=== PATIENT | male | born 1965 | race Caucasian/White ===

== ENCOUNTER → 2016-06-10 | Outpatient (CLI) | payer OTHER ==
[~2016-06-10] MED LIST: AMLO5TAB2 PO; APIX5TAB PO; ATEN50TA PO; LEVO25TA5 PO; LISI-552 PO; LISI10TA2 PO; LISI40TA PO; LORA0.5T PO; LORA10TA7 PO; METH5TAB5 PO; METO-272 PO; METO100T6 PO; PRAV20TA PO; RIVA20TA PO; [UNRECOGNIZED DRUG - REMARK]
== END ==
LOC: LAB 16:58
PROVIDERS: ATTEND Surgery
DX: E05.90 Thyrotoxicosis, unspecified without thyrotoxic crisis or storm (principal)
CPT/HCPCS: 36415; 84436; 84443; 84480

== ENCOUNTER 2016-06-14 15:19 | Emergency (ER) | payer OTHER ==
[~2016-06-14] VITALS: Ht 180.3 cm; Wt 90.7 kg
[~2016-06-14 15:19] MED LIST changes: -AMLO5TAB2 PO; -APIX5TAB PO; -LEVO25TA5 PO; -LISI10TA2 PO; -LORA0.5T PO; -METO100T6 PO; -PRAV20TA PO
[2016-06-14] MEDS ORDERED: APIX5TAB PO (15:52)
[2016-06-14] MEDS ORDERED: METO100T6 PO (15:52)
[2016-06-14] MEDS ORDERED: LISI10TA2 PO (15:52)
[2016-06-14] MEDS ORDERED: AMLO5TAB2 PO (15:52)
--- NOTE | 2016-06-14 15:59 | ED General ---
General Chief Complaint: General Problems/Pain Stated Complaint: UNABLE TO SLEEP/L SIDE NECK PAIN Nursing Triage Note: PT CO OF POOR SLEEPING FOR APPROX 2 WEEKS, HAS ALOT OF STRESS AT WORK, HAS HAD RECENT ABLATION OF THYROID, HAS CRAMPING IN ARMS AND LEGS, SOME NECK PAIN FOR A COUPLE OF WEEKS DENIES INJURIES AT THIS X Nursing Sepsis Screen: No Definite Risk History of Present Illness Time Seen by Provider: 15:57 Initial Comments To ER with insomnia for about 3 weeks. States he's had a lot of stress at work and home and he lays awake at night thinking about this.. In October of last year he had chemical ablation of the thyroid with methimazole. He reports free T4 is decreasing and TSH is increasing. These labs were drawn 3 days ago. Reports cramping in his legs intermittently and cramping in his neck intermittently. Has not seen his physician for this. Timing/Duration: Intermittent Severity: Moderate Associated Systoms: Denies Symptoms Allergies and Home Medications Allergies Coded Allergies: No Known Drug Allergies (Unverified , 10/16/15) Home Medications Amlodipine Besylate 5 Mg Tablet #90 (Reported) Apixaban 5 Mg Tablet #60 (Reported) Lisinopril 10 Mg Tablet #90 (Reported) Lorazepam 0.5 Mg Tablet #10 0.5-1 MG PO HS PRN PRN INSOMNIA Prescribed by: SHANNAN ALEGRIA on 06/14/16 1634 Metoprolol Succinate 100 Mg Tab.er.24h #90 (Reported) Constitutional: see HPI EENTM: see HPI Respiratory: no symptoms reported Cardiovascular: no symptoms reported Genitourinary: no symptoms reported Musculoskeletal: no symptoms reported Skin: no symptoms reported Psychiatric/Neurological: No Symptoms Reported Hematologic/Lymphatic: No Symptoms Reported Immunological/Allergic: no symptoms reported Past Acheqch-Dntpet-Zyksmd Hx Patient Social History Alcohol Use: Denies Use Recreational Drug Use: No Smoking Status: Current Everyday Smoker Type Used: Cigarettes Recent Foreign Travel: No Contact w/Someone Who Travel: No Recent Infectious Disease Expo: No Immunizations Up To Date Tetanus Booster (TDap): More than 5yrs Surgeries HX Surgeries: Yes Surgeries: Appendectomy Respiratory Hx Respiratory Disorders: No Cardiovascular Hx Cardiac Disorders: Yes Cardiac Disorders: Hypertension, Palpitations Neurological Hx Neurological Disorders: No Reproductive System Hx Reproductive Disorders: No Sexually Transmitted Disease: No HIV/AIDS: No Genitourinary Hx Genitourinary Disorders: No Gastrointestinal Hx Gastrointestinal Disorders: No Musculoskeletal Hx Musculoskeletal Disorders: No Endocrine Hx Endocrine Disorders: Yes Endocrine Disorders: Diabetes, Non-Insulin dep HEENT HX ENT Disorders: No Loss of Vision: Denies Hearing Impairment: Denies Cancer Hx Cancer: No Psychosocial Hx Psychiatric Problems: Yes Behavioral Health Disorders: Anxiety Integumentary HX Skin/Integumentary Disorder: No Blood Transfusions Hx Blood Disorders: No Adverse Reaction to a Blood Tr: No Family Medical History Significant Family History: No Pertinent Family Hx Physical Exam Vital Signs Vital Sign - Last 12Hours 06/14/16 15:44 Temp 97.9 Pulse 79 Resp 18 B/P 146/95 Pulse Ox 96 Capillary Refill : Less Than 3 Seconds General Appearance: No Apparent Distress WD/WN Eyes: Bilateral Eye EOMI, Bilateral Eye Normal Inspection, Bilateral Eye PERRL HEENT: PERRL/EOMI TMs Normal Neck: Full Range of Motion Normal Inspection Respiratory: No Accessory Muscle Use No Respiratory Distress Cardiovascular: Regular Rate, Rhythm Normal Peripheral Pulses Gastrointestinal: Non Tender Soft Extremity: Normal Capillary Refill Normal Inspection Neurologic/Psychiatric: Alert Oriented x3 No Motor/Sensory Deficits Skin: Normal Color Warm/Dry Progress/Results/Core Measures Results/Orders Lab Results Laboratory Tests Test 06/14/16 15:40 Range/Units Alanine Aminotransferase (ALT/SGPT) 26 0-55 U/L Albumin 4.6 H 3.2-4.5 G/DL Alkaline Phosphatase 140 H 40-136 U/L Anion Gap 10 5-14 MMOL/L Aspartate Amino Transf (AST/SGOT) 36 H 5-34 U/L BUN/Creatinine Ratio 23 Basophils # (Auto) 0.0 0.0-0.1 10^3/uL Basophils (%) (Auto) 0 0-10 % Blood Urea Nitrogen 17 7-18 MG/DL Calcium Level 9.0 8.5-10.1 MG/DL Carbon Dioxide Level 20 L 21-32 MMOL/L Chloride Level 103 98-107 MMOL/L Creatinine 0.75 0.60-1.30 MG/DL Eosinophils # (Auto) 0.1 0.0-0.3 10^3/uL Eosinophils (%) (Auto) 1 0-10 % Estimat Glomerular Filtration Rate > 60 Free Thyroxine 0.51 L 0.70-1.48 NG/DL Glucose Level 97 70-105 MG/DL Hematocrit 50 40-54 % Hemoglobin 17.5 13.3-17.7 G/DL Lymphocytes # (Auto) 1.7 1.0-4.0 X 10^3 Lymphocytes (%) (Auto) 18 12-44 % Mean Corpuscular Hemoglobin 30 25-34 PG Mean Corpuscular Hemoglobin Concent 35 32-36 G/DL Mean Corpuscular Volume 86 80-99 FL Mean Platelet Volume 9.2 7.4-10.4 FL Monocytes # (Auto) 0.6 0.0-1.0 X 10^3 Monocytes (%) (Auto) 6 0-12 % Neutrophils # (Auto) 7.1 1.8-7.8 X 10^3 Neutrophils (%) (Auto) 74 42-75 % Platelet Count 287 130-400 10^3/uL Potassium Level 4.3 3.6-5.0 MMOL/L Red Blood Count 5.80 4.35-5.85 10^6/uL Red Cell Distribution Width 14.9 H 10.0-14.5 % Sodium Level 133 L 135-145 MMOL/L Thyroid Stimulating Hormone (TSH) 1.59 0.35-4.94 UIU/ML Total Bilirubin 0.7 0.1-1.0 MG/DL Total Protein 7.7 6.4-8.2 G/DL White Blood Count 9.5 4.3-11.0 10^3/uL My Orders Orders-SHANNAN ALEGRIA APRN Cbc With Automated Diff (06/14/16 15:24) Comprehensive Metabolic Panel (06/14/16 15:24) Thyroid Stimulating Hormone (06/14/16 15:24) Free T4 (Free Thyroxine) (06/14/16 15:24) Ondansetron Oral Dissolve Tab (Zofran (06/14/16 16:00) Vital Signs/I&O Vital Sign - Last 12Hours 06/14/16 15:44 Temp 97.9 Pulse 79 Resp 18 B/P 146/95 Pulse Ox 96 Blood Pressure Mean: 112 Departure Impression Impression: Primary Impression: Hyperthyroidism Additional Impressions: Muscle cramps Insomnia Qualified Code: G47.01 - Insomnia due to medical condition Disposition: 01 HOME, SELF-CARE Condition: Stable Departure-Patient Inst. Decision time for Depature: 16:32 Referrals: EVIE AVELAR DO (PCP) Primary Care Physician SASHA POWERS (Family) Primary Care Physician Patient Instructions: Insomnia Add. Discharge Instructions: 1. Follow-up with her regular doctor 2. Return to ER for any concerns All discharge instructions reviewed with patient and/or family. Voiced understanding. Scripts Lorazepam 0.5 Mg Tablet0.5-1 Mg PO HS PRN INSOMNIA #10 TAB Prov:SHANNAN ALEGRIA APRN 06/14/16 SHANNAN ALEGRIA APRN Jun 14, 2016 15:59
[2016-06-14] MEDS ORDERED: ONDANSETRON 4 MG (ZOFRAN) ORAL DISSOLVE TAB PO ONE (16:00)
[2016-06-14 16:09] LABS: BASOPHILS % (AUTO) 0 % (0-10); EOSINOPHILS # (AUTO) 0.1 10^3/uL (0.0-0.3); EOSINOPHILS % (AUTO) 1 % (0-10); LYMPHOCYTES # (AUTO) 1.7 X 10^3 (1.0-4.0); LYMPHOCYTES % (AUTO) 18 % (12-44); MEAN CORPUSCULAR HEMOGLOBIN 30 PG (25-34); MEAN CORPUSCULAR HGB CONC 35 G/DL (32-36); MEAN CORPUSCULAR VOLUME 86 FL (80-99); MEAN PLATELET VOLUME 9.2 FL (7.4-10.4); MONOCYTES # (AUTO) 0.6 X 10^3 (0.0-1.0); MONOCYTES % (AUTO) 6 % (0-12); NEUTROPHILS # (AUTO) 7.1 X 10^3 (1.8-7.8); NEUTROPHILS % (AUTO) 74 % (42-75); PLATELET COUNT 287 10^3/uL (130-400); RED CELL DISTRIBUTION WIDTH 14.9 % (10.0-14.5); WHITE BLOOD COUNT 9.5 10^3/uL (4.3-11.0)
[2016-06-14 16:24] LABS: ALANINE AMINOTRANSFERASE 26 U/L (0-55); ALBUMIN 4.6 G/DL (3.2-4.5); ANION GAP 10 MMOL/L (5-14); ASPARTATE AMINO TRANSFERASE 36 U/L (5-34); BILIRUBIN,TOTAL 0.7 MG/DL (0.1-1.0); BLOOD UREA NITROGEN 17 MG/DL (7-18); BUN/CREATININE RATIO 23; CARBON DIOXIDE 20 MMOL/L (21-32); CHLORIDE 103 MMOL/L (98-107); CREATININE SERUM 0.75 MG/DL (0.60-1.30); GFR ESTIMATED > 60; GLUCOSE 97 MG/DL (70-105); POTASSIUM 4.3 MMOL/L (3.6-5.0); SODIUM 133 MMOL/L (135-145); TOTAL PROTEIN 7.7 G/DL (6.4-8.2)
[2016-06-14] MEDS ORDERED: LORA0.5T PO (16:34)
[2016-06-14 16:45] LABS: THYROID STIMULATING HORMONE 1.59 UIU/ML (0.35-4.94)
[2016-06-14 17:09] VITALS: BP 136/88
== END 2016-06-14 17:09 | disposition home or self-care (01) ==
LOC: EDUNIT# 15:19 → ER 15:20
DX: G47.00 Insomnia, unspecified (principal); E05.90 Thyrotoxicosis, unspecified without thyrotoxic crisis or storm; R25.2 Cramp and spasm; E11.9 Type 2 diabetes mellitus without complications; F17.210 Nicotine dependence, cigarettes, uncomplicated; Z79.899 Other long term (current) drug therapy
CPT/HCPCS: 36415; 80053; 84439; 84443; 85025; 99281

== ENCOUNTER 2016-06-25 16:12 | Emergency (ER) | payer OTHER ==
[~2016-06-25] VITALS: Ht 180.3 cm; Wt 90.7 kg
[~2016-06-25 16:12] MED LIST changes: +AMLO5TAB2 PO; +APIX5TAB PO; +LISI10TA2 PO; +LORA0.5T PO; +METO100T6 PO
[2016-06-25] MEDS ORDERED: ASPIRIN 81 MG CHEW (CHILDREN'S ASA) PO ONE (16:30)
[2016-06-25 16:40] LABS: BASOPHILS # (AUTO) 0.1 10^3/uL (0.0-0.1); BASOPHILS % (AUTO) 1 % (0-10); EOSINOPHILS # (AUTO) 0.1 10^3/uL (0.0-0.3); EOSINOPHILS % (AUTO) 2 % (0-10); LYMPHOCYTES # (AUTO) 1.7 X 10^3 (1.0-4.0); LYMPHOCYTES % (AUTO) 27 % (12-44); MEAN CORPUSCULAR HEMOGLOBIN 31 PG (25-34); MEAN CORPUSCULAR HGB CONC 35 G/DL (32-36); MEAN CORPUSCULAR VOLUME 89 FL (80-99); MEAN PLATELET VOLUME 9.2 FL (7.4-10.4); MONOCYTES # (AUTO) 0.3 X 10^3 (0.0-1.0); MONOCYTES % (AUTO) 5 % (0-12); NEUTROPHILS # (AUTO) 4.2 X 10^3 (1.8-7.8); NEUTROPHILS % (AUTO) 65 % (42-75); PLATELET COUNT 248 10^3/uL (130-400); RED BLOOD COUNT 5.36 10^6/uL (4.35-5.85); RED CELL DISTRIBUTION WIDTH 15.6 % (10.0-14.5); WHITE BLOOD COUNT 6.4 10^3/uL (4.3-11.0)
[2016-06-25 16:55] LABS: PROTHROMBIN TIME PATIENT 13.2 SEC (12.2-14.7)
[2016-06-25 17:01] LABS: ALANINE AMINOTRANSFERASE 21 U/L (0-55); ALBUMIN 4.3 G/DL (3.2-4.5); ANION GAP 14 MMOL/L (5-14); ASPARTATE AMINO TRANSFERASE 30 U/L (5-34); BILIRUBIN,TOTAL 0.4 MG/DL (0.1-1.0); BLOOD UREA NITROGEN 15 MG/DL (7-18); BUN/CREATININE RATIO 16; CALCIUM 8.5 MG/DL (8.5-10.1); CARBON DIOXIDE 21 MMOL/L (21-32); CHLORIDE 104 MMOL/L (98-107); CREATININE SERUM 0.95 MG/DL (0.60-1.30); GFR ESTIMATED > 60; GLUCOSE 187 MG/DL (70-105); MAGNESIUM 2.4 MG/DL (1.8-2.4); POTASSIUM 3.7 MMOL/L (3.6-5.0); SODIUM 139 MMOL/L (135-145); TOTAL PROTEIN 7.3 G/DL (6.4-8.2)
--- NOTE | 2016-06-25 17:08 | Diagnostic Imaging Report ---
INDICATION: Lightheadedness and shortness of breath and chest pain. TECHNIQUE: PA chest obtained at 4:41 p.m. and compared to 10/16/2015. FINDINGS: Heart and mediastinal silhouette are unremarkable. There are chronic appearing increased interstitial markings. There is no acute consolidation or pneumothorax or pleural fluid. There is an old left clavicle fracture. IMPRESSION: Chronic appearing increased interstitial markings. No acute infiltrate or pleural fluid. Dictated by: Dictated on workstation # [id number]
[2016-06-25 17:23] LABS: MYOGLOBIN SERUM 87.2 NG/ML (10.0-92.0)
--- NOTE | 2016-06-25 17:27 | ED Cardiac General ---
History of Present Illness General Chief Complaint: Chest Pain Stated Complaint: CP,FACIAL NUMBNESS Nursing Triage Note: PT REPORTS INTERMITTENT CP X 2 WEEKS. PT REPORTS WORSE TODAY BUT DENIES ANY CURRENT CP. PT ALSO REPORTS 2 NEAR SYNCOPAL EPISODES YESTERAY AND TODAY. PT REPROTS GENERALIZED WEAKNESS. PT ALSO REPORTS L SIDED FACIAL NUMBNESS STARTING EARLY THIS AM. Source: patient Exam Limitations: no limitations History of Present Illness Time seen by provider: 16:23 Initial Comments This patient presents to the emergency room with complaints of intermittent episodes of near-syncope and dizziness 4 days. He had 2 such episodes today. They are not necessarily associated with activity. He also complains of frequent muscle cramping is in his neck and extremities. He has had some numbness to the left side of his face intermittently for many weeks. He has had some chest discomfort just left of the sternum 1-2 weeks. He has some mild chest discomfort at present. He had thyroid ablation last in October or November for hyperthyroidism. TSH and T4 have been relatively stable. He has not needed to start levothyroxine yet.. He continues on Eliquis and Toprol-XL for paroxysmal atrial fibrillation. Patient reports excellent compliance with his medications. He has had some shortness of breath today. He continues to smoke. His tobacco use has increased recently due to increased stress in his life. 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 He denies any alcohol or drug use. Patient reports his chest discomfort is minimally noticeable at this time. Allergies and Home Medications Allergies Coded Allergies: No Known Drug Allergies (Unverified , 10/16/15) Home Medications Amlodipine Besylate 5 Mg Tablet #90 (Reported) Apixaban 5 Mg Tablet #60 (Reported) Levothyroxine Sodium 25 Mcg Tablet #30 25 MCG PO DAILY Prescribed by: ERIK GHOTRA on 06/25/16 1842 Lisinopril 10 Mg Tablet #90 (Reported) Lorazepam 0.5 Mg Tablet #10 0.5-1 MG PO HS PRN PRN INSOMNIA Prescribed by: SHANNAN ALEGRIA on 06/14/16 1634 Metoprolol Succinate 100 Mg Tab.er.24h #90 (Reported) Review of Systems Constitutional: see HPI EENTM: No Symptoms Reported Respiratory: See HPI Cardiovascular: See HPI Gastrointestinal: No Symptoms Reported Genitourinary: No Symptoms Reported Musculoskeletal: no symptoms reported Skin: no symptoms reported Psychiatric/Neurological: See HPI Endocrine: See HPI Past Pzwdwzq-Ysxbmo-Ogupod Hx Patient Social History Alcohol Use: Denies Use Recreational Drug Use: No Smoking Status: Current Everyday Smoker Type Used: Cigarettes Recent Foreign Travel: No Contact w/Someone Who Travel: No Recent Infectious Disease Expo: No Recent Hopitalizations: No Immunizations Up To Date Tetanus Booster (TDap): More than 5yrs Surgeries HX Surgeries: Yes (THYROID ABLATION) Surgeries: Appendectomy Respiratory Hx Respiratory Disorders: No Cardiovascular Hx Cardiac Disorders: Yes Cardiac Disorders: Atrial Fibrillation (paroxysmal), Hypertension, Palpitations Neurological Hx Neurological Disorders: No Reproductive System Hx Reproductive Disorders: No Sexually Transmitted Disease: No HIV/AIDS: No Genitourinary Hx Genitourinary Disorders: No Gastrointestinal Hx Gastrointestinal Disorders: No Musculoskeletal Hx Musculoskeletal Disorders: No Endocrine Hx Endocrine Disorders: Yes Endocrine Disorders: Hyperthyroidism (status post nuclear thyroid ablation), Diabetes, Non-Insulin dep HEENT HX ENT Disorders: No Loss of Vision: Denies Hearing Impairment: Denies Cancer Hx Cancer: No Psychosocial Hx Psychiatric Problems: Yes Behavioral Health Disorders: Anxiety Integumentary HX Skin/Integumentary Disorder: No Blood Transfusions Hx Blood Disorders: No Adverse Reaction to a Blood Tr: No Family Medical History Significant Family History: No Pertinent Family Hx Physical Exam Vital Signs Capillary Refill : Less Than 3 Seconds General Appearance: No Apparent Distress WD/WN HEENT: PERRL/EOMI Normal ENT Inspection Pharynx Normal Neck: Normal Inspection Respiratory: Lungs Clear Normal Breath Sounds No Accessory Muscle Use No Respiratory Distress Cardiovascular: Regular Rate, Rhythm No Edema No Murmur Gastrointestinal: Normal Bowel Sounds Non Tender Soft Extremity: Normal Inspection No Pedal Edema Neurologic/Psychiatric: Alert Oriented x3 No Motor/Sensory Deficits Normal 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-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 Norm as Tested Skin: Normal Color Warm/Dry Progress/Results/Core Measures Results/Orders Lab Results Laboratory Tests Test 06/25/16 16:30 Range/Units Activated Partial Thromboplast Time 30 24-35 SEC Alanine Aminotransferase (ALT/SGPT) 21 0-55 U/L Albumin 4.3 3.2-4.5 G/DL Alkaline Phosphatase 114 40-136 U/L Anion Gap 14 5-14 MMOL/L Aspartate Amino Transf (AST/SGOT) 30 5-34 U/L B-Type Natriuretic Peptide < 10.0 <100.0 PG/ML BUN/Creatinine Ratio 16 Basophils # (Auto) 0.1 0.0-0.1 10^3/uL Basophils (%) (Auto) 1 0-10 % Blood Urea Nitrogen 15 7-18 MG/DL Calcium Level 8.5 8.5-10.1 MG/DL Carbon Dioxide Level 21 21-32 MMOL/L Chloride Level 104 98-107 MMOL/L Creatinine 0.95 0.60-1.30 MG/DL Eosinophils # (Auto) 0.1 0.0-0.3 10^3/uL Eosinophils (%) (Auto) 2 0-10 % Estimat Glomerular Filtration Rate > 60 Free Thyroxine 0.40 L 0.70-1.48 NG/DL Glucose Level 187 H 70-105 MG/DL Hematocrit 48 40-54 % Hemoglobin 16.4 13.3-17.7 G/DL INR Comment 1.0 0.8-1.4 Lymphocytes # (Auto) 1.7 1.0-4.0 X 10^3 Lymphocytes (%) (Auto) 27 12-44 % Magnesium Level 2.4 1.8-2.4 MG/DL Mean Corpuscular Hemoglobin 31 25-34 PG Mean Corpuscular Hemoglobin Concent 35 32-36 G/DL Mean Corpuscular Volume 89 80-99 FL Mean Platelet Volume 9.2 7.4-10.4 FL Monocytes # (Auto) 0.3 0.0-1.0 X 10^3 Monocytes (%) (Auto) 5 0-12 % Myoglobin 87.2 10.0-92.0 NG/ML Neutrophils # (Auto) 4.2 1.8-7.8 X 10^3 Neutrophils (%) (Auto) 65 42-75 % Platelet Count 248 130-400 10^3/uL Potassium Level 3.7 3.6-5.0 MMOL/L Prothrombin Time 13.2 12.2-14.7 SEC Red Blood Count 5.36 4.35-5.85 10^6/uL Red Cell Distribution Width 15.6 H 10.0-14.5 % Sodium Level 139 135-145 MMOL/L Thyroid Stimulating Hormone (TSH) 7.43 H 0.35-4.94 UIU/ML Total Bilirubin 0.4 0.1-1.0 MG/DL Total Protein 7.3 6.4-8.2 G/DL Troponin I < 0.30 <0.30 NG/ML White Blood Count 6.4 4.3-11.0 10^3/uL My Orders Orders-ERIK FISHMAN MD BNP (06/25/16 17:21) Medications Given in ED Vital Signs/I&O Blood Pressure Mean: 96 Progress Note #1: Time: 17:27 Progress Note Patient received aspirin 324 mg chewed. Chest pain workup is in progress. He is being monitored on telemetry. EKG showed no specific problems. Progress Note #2: Progress Note Patient is trending toward hypothyroidism when today's labs are compared with prior. Some of the symptoms such as fatigue and feeling depressed would correlate well with this. Case was reviewed with Dr. Funes who suggest starting levothyroxine 20 g daily. I discussed this plan with the patient. He is under the impression Dr. Darden once to manage the thyroid replacement. I contacted Dr. Darden who confirmed that he will manage the thyroid replacement. He agrees with starting levothyroxine 25 g daily. I will provide a 30 day prescription and he can follow-up as appropriate. Case was also reviewed with Dr. Noriega. Symptoms of chest discomfort and near syncope are not acute and have been present for several days to weeks. He suggests follow-up with Dr. Telles in the clinic tomorrow. Patient may need outpatient cardiac monitoring to determine if he is flipping in and out of atrial fibrillation or other arrhythmias. ECG Initial ECG Impression Date: Jun 25, 2016 Initial ECG Impression Time: 16:23 Initial ECG Rate: 75 Initial ECG Rhythm: Normal Sinus Comment Normal sinus rhythm with no ST elevation or depression. Nonspecific borderline T wave abnormalities. A. fib from prior EKG resolved. No abnormal intervals or axis deviation. Diagnostic Imaging Diagonstic Imaging: Xray Plain Films/CT/US/NM/MRI: chest Comments Chest x-ray viewed by me and report reviewed. See report below: NAME: TERA QIU MED REC#: [id number] PT STATUS: REG ER : 1965 PHYSICIAN: SHANNAN ALEGRIA APRN ADMIT DATE: 06/25/16/ER Draft Date of Exam:06/25/16 CHEST 1 VIEW, AP/PA ONLY INDICATION: Lightheadedness and shortness of breath and chest pain. TECHNIQUE: PA chest obtained at 4:41 p.m. and compared to 10/16/2015. FINDINGS: Heart and mediastinal silhouette are unremarkable. There are chronic appearing increased interstitial markings. There is no acute consolidation or pneumothorax or pleural fluid. There is an old left clavicle fracture. IMPRESSION: Chronic appearing increased interstitial markings. No acute infiltrate or pleural fluid. Dictated on workstation # [id number] Dict: 06/25/16 1654 Trans: 06/25/16 1708 [id number] Interpreted by: DEBBY GRANADOS MD Departure Impression Impression: Primary Impression: Hypothyroidism Qualified Code: E89.0 - Postprocedural hypothyroidism Additional Impressions: Near syncope Chest pain Qualified Code: R07.9 - Chest pain, unspecified Disposition: HOME, SELF-CARE Condition: Stable Departure-Patient Inst. Decision time for Depature: 18:20 Referrals: EVIE AVELAR DO (PCP) Primary Care Physician SASHA POWERS (Family) Primary Care Physician Patient Instructions: Chest Pain, Hypothyroidism (Underactive Thyroid) Add. Discharge Instructions: Take your levothyroxin in the morning on an empty stomach. Contact Dr. Darden office for further follow-up on monitoring your thyroid replacement. Follow-up with Dr. Telles by contacting his office tomorrow regarding your chest pain and lightheadedness. Return to the ER if symptoms worsen. Stay well-hydrated. Work toward quitting smoking as soon as possible. Seek assistance from your primary care provider in doing so if necessary. All discharge instructions reviewed with patient and/or family. Voiced understanding. Scripts Levothyroxine Sodium 25 Mcg [id number] Mcg PO DAILY #30 TAB Ref 1 Prov:ERIK FISHMAN MD 06/25/16 Copy Copies To 1: TRENT TELLES MD [facility]S Copies To 2: TRINITY FUNES MD, JOSHUA T MD Jun 25, 2016 17:27 LUIS [id number] Interpreted by: DEBBY GRANADOS MD Departure Impression Impression: Primary Impression: Hypothyroidism Qualified Code: E89.0 - Postprocedural hypothyroidism Additional Impressions: Near syncope Chest pain Qualified Code: R07.9 - Chest pain, unspecified Disposition: HOME, SELF-CARE Condition: Stable Departure-Patient Inst. Decision time for Depature: 18:20 Referrals: EVIE AVELAR DO (PCP) Primary Care Physician SASHA POWERS (Family) Primary Care Physician Patient Instructions: Chest Pain, Hypothyroidism (Underactive Thyroid) Add. Discharge Instructions: Take your levothyroxin in the morning on an empty stomach. Contact Dr. Darden office for further follow-up on monitoring your thyroid replacement. Follow-up with Dr. Telles by contacting his office tomorrow regarding your chest pain and lightheadedness. Return to the ER if symptoms worsen. Stay well-hydrated. Work toward quitting smoking as soon as possible. Seek assistance from your primary care provider in doing so if necessary. All discharge instructions reviewed with patient and/or family. Voiced understanding. Scripts Levothyroxine Sodium 25 Mcg [id number] Mcg PO DAILY #30 TAB Ref 1 Prov:ERIK FISHMAN MD 06/25/16 Copy Copies To 1: TRENT TELLES MD [facility] Copies To 2: TRINITY FUNES MD, JOSHUA T MD Jun 25, 2016 17:27
[2016-06-25 17:30] LABS: THYROID STIMULATING HORMONE 7.43 UIU/ML (0.35-4.94)
[2016-06-25] MEDS ORDERED: LEVO25TA5 PO (18:42)
[2016-06-25 18:50] VITALS: BP 140/96
== END 2016-06-25 18:50 | disposition home or self-care (01) ==
LOC: EDUNIT# 16:12 → ER 16:13
DX: E03.9 Hypothyroidism, unspecified (principal); R55 Syncope and collapse; R07.9 Chest pain, unspecified; I48.0 Paroxysmal atrial fibrillation; F17.210 Nicotine dependence, cigarettes, uncomplicated; Z79.01 Long term (current) use of anticoagulants; Z79.899 Other long term (current) drug therapy
CPT/HCPCS: 36415; 71010; 80053; 83735; 83874; 83880; 84439; 84443; 84484; 85025; 85610; 85730; 93005; 93041

== ENCOUNTER → 2016-07-23 | Outpatient (CLI) | payer OTHER ==
[~2016-07-23] MED LIST changes: +LEVO25TA5 PO; +PRAV20TA PO
--- OUTSIDE RECORDS SUMMARY | 2016-07-23 10:34 | XMS REPORT ---
Author Author SASHA POWERS Organization [facility] Address [address] [place] [address] Care Team Providers Care Makeup Sales Advisor Name Role Phone SASHA POWERS Unavailable PROBLEMS Type Condition ICD9-CM Code BSR27-DK Code Onset Dates Condition Status SNOMED Code Problem Essential hypertension I10 Active 40351051 Problem Postablative hypothyroidism E89.0 Active 904752125 Assessment Essential hypertension I10 Mar, Active 29305311 Problem Atrial fibrillation, unspecified type I48.91 Active 22951250 Problem Paroxysmal atrial fibrillation I48.0 Active 013472000 ALLERGIES Substance Reaction Event Type Date Status N.K.D.A. Unknown Non Drug Allergy Mar, Unknown SOCIAL HISTORY No smoking Hx information available PLAN OF CARE VITAL SIGNS Height 71 in 2016-04-02 Weight 189.7 lbs 2016-04-02 Heart Rate 82 bpm 2016-04-02 Respiratory Rate 20 2016-04-02 BMI 26.45 kg/m2 2016-04-02 Blood pressure systolic 152 mmHg 2016-04-02 Blood pressure diastolic 102 mmHg 2016-04-02 MEDICATIONS Medication Instructions Dosage Frequency Start Date End Date Duration Status Lisinopril 20 mg Orally Once a day 1 tablet 24h Mar, 30 days Active Eliquis 5 MG Active Metoprolol Succinate ER 100 MG Orally Once a day 1 tablet 24h Oct, 30 days Active RESULTS No Results PROCEDURES Procedure Date Ordered Related Diagnosis Body Site Office Visit, Est Pt., Level 3 Apr 02, 2016 IMMUNIZATIONS No Known Immunizations
--- NOTE | 2016-07-23 13:37 | ECHOCARDIOGRAPHY REPORT ---
PROCEDURE PHYSICIAN: TRENT TELLES DATE OF PROCEDURE: 07/23/2016 TWO DIMENSIONAL ECHOCARDIOGRAM REPORT PRIMARY PHYSICIAN: OTHER PHYSICIAN: Linda Bhat APRN REFERRING PHYSICIAN: Dr. Kearns ORDERING PHYSICIAN: Dr. Telles INDICATION FOR THE PROCEDURE: Syncope, paroxysmal atrial fibrillation. MEASUREMENTS DERIVED VALUES LV DIAMETER (LAX) NORMALS NORMALS Diastolic 4.8 (3.6-5.2) Eject. Fract. (60%+/-6%) Systolic (2.3-3.9) Diastolic Vol. % Shortening (0.22-0.42) Systolic Vol. Aortic Root 3.4 IVS THICKNESS Diastolic 1.1 (0.6-1.1) LVPW THICKNESS Diastolic (0.6-1.1) LA DIAMETER Systolic 3.7 (2.1-3.7) DESCRIPTION: 2-Dimensional echocardiography showed normal global left ventricular systolic function with normal regional wall motion. The aortic, mitral and tricuspid valve leaflets showed good leaflet excursion. There is no significant pericardial effusion. Doppler imaging shows trivial pulmonic and tricuspid regurgitation. The aortic valve is trileaflet. Doppler imaging shows mild to moderate mitral regurgitation. Pulmonary artery systolic pressure is estimated at approximately 35 mmHg. There is no Doppler evidence of any significant valvular stenosis. There is no evidence of any significant intracardiac shunt on this transthoracic echocardiographic study. The inferior vena cava appears mildly dilated but does exhibits normal inspiratory collapse. CONCLUSION: 1. Normal global left ventricular systolic function with an ejection fraction of approximately 60%. 2. Trivial pulmonic and tricuspid regurgitation. 3. Mild to moderate mitral regurgitation. 4. No evidence of significant valvular stenosis. 5. Pulmonary artery systolic pressure is estimated 35 mmHg. Job ID: [id number] Dictated Date: 07/23/2016 11:47:32 Foam Charger Date: 07/23/2016 13:26:59 / jama
== END ==
LOC: CARD 10:30
PROVIDERS: ATTEND Internal Medicine Cardiovascular Disease
DX: R55 Syncope and collapse (principal); R07.89 Other chest pain; I48.0 Paroxysmal atrial fibrillation; E89.0 Postprocedural hypothyroidism; Z72.0 Tobacco use
CPT/HCPCS: 93017; 93306

== ENCOUNTER → 2016-08-01 | Outpatient (CLI) | payer OTHER | LOC: LAB 13:57 | PROVIDERS: ATTEND Surgery | DX: E05.90 Thyrotoxicosis, unspecified without thyrotoxic crisis or storm (principal) | CPT/HCPCS: 36415; 84436; 84443; 84480 ==

== ENCOUNTER 2016-08-06 08:07 | Day surgery (SDC) | payer OTHER ==
[~2016-08-06] VITALS: Ht 180.3 cm; Wt 90.7 kg
[2016-08-06] VITALS (10 sets, daily range): BP systolic 97–143; BP diastolic 75–99
[~2016-08-06 08:07] MED LIST changes: -PRAV20TA PO
[2016-08-06] MEDS ORDERED: NS IV 1000 ML 1,000 ML IV SCH ×2 (08:23→12:13)
[2016-08-06] MEDS ORDERED: NS IV 1000 ML 1,000 ML ONE (08:30)
[2016-08-06] MEDS ORDERED: HEParin (CATH LAB) 2,000 ML IV ONE (08:30)
[2016-08-06] MEDS ORDERED: LIDOCAINE 1% INJ 20 ML (XYLOCAINE) VIAL ONE (08:30)
[2016-08-06 08:53] LABS: MEAN PLATELET VOLUME 9.4 FL (7.4-10.4); RED BLOOD COUNT 5.42 10^6/uL (4.35-5.85); RED CELL DISTRIBUTION WIDTH 14.9 % (10.0-14.5); WHITE BLOOD COUNT 7.2 10^3/uL (4.3-11.0)
[2016-08-06 09:04] LABS: PROTHROMBIN TIME PATIENT 12.5 SEC (12.2-14.7)
[2016-08-06] MEDS ORDERED: LEVO25TA5 PO (09:09)
[2016-08-06 09:15] LABS: ALANINE AMINOTRANSFERASE 17 U/L (0-55); ALBUMIN 4.4 G/DL (3.2-4.5); ANION GAP 10 MMOL/L (5-14); ASPARTATE AMINO TRANSFERASE 23 U/L (5-34); BILIRUBIN,TOTAL 0.6 MG/DL (0.1-1.0); BLOOD UREA NITROGEN 16 MG/DL (7-18); BUN/CREATININE RATIO 19; CALCIUM 8.8 MG/DL (8.5-10.1); CARBON DIOXIDE 24 MMOL/L (21-32); CHLORIDE 103 MMOL/L (98-107); CHOLESTEROL 218 MG/DL (< 200); CREATININE SERUM 0.83 MG/DL (0.60-1.30); DIRECT LDL 148 MG/DL (1-129); GFR ESTIMATED > 60; GLUCOSE 127 MG/DL (70-105); POTASSIUM 4.4 MMOL/L (3.6-5.0); SODIUM 137 MMOL/L (135-145); TOTAL PROTEIN 7.4 G/DL (6.4-8.2); TRIGLYCERIDES 190 MG/DL (<150); VLDL CHOLESTEROL 38 MG/DL (5-40)
[2016-08-06] MEDS ORDERED: FLU TRIvalent (5 YOA+) 2016-17 (AFLURIA) 0.5 ML IM ONE (09:15)
[2016-08-06] MEDS ORDERED: fentaNYL INJECTION 100 MCG/2 ML AMP ONE (10:58)
[2016-08-06] MEDS ORDERED: MIDAZOLAM 5 MG/5 ML (VERSED) VIAL ONE (10:58)
[2016-08-06] MEDS ORDERED: diphenhydrAMINE 50 MG/ML INJ (BENADRYL) ONE (11:37)
--- NOTE | 2016-08-06 11:37 | Cardiac Procedure Note-CS/ASA ---
Pre-Procedure Note Pre-Op Procedure Note H&P Reviewed The H&P was reviewed, patient examined and no changes noted. Date H&P Reviewed: Aug 06, 2016 Time H&P Reviewed: 11:36 Conscious Sedation Pre-Proced Time Reviewed: 11:36 ASA Class: 3 Airway Mallampati Classification: ([place] appropriate class) I. II. III, IV Lungs Heart ASA score ASA 1: a normal healthy patient ASA 2: a patient with a mild systemic disease (mid diabetes, controlled hypertension, obesity ASA 3: a patient with a severe systemic disease that limits activity (angina , COPD, prior Myocardial infarction) ASA 4: a patient with an incapacitating disease that is a constant threat to life (CHF, renal failure) ASA 5: a moribund patient not expected to survive 24 hrs. (ruptured aneurysm) ASA 6: a declared brain patient whose organs are being harvested. For emergent operations, add the letter E after the classification Grade 2 Sedation Plan: Analgesia, Amnesia, Plan communicated to team members, Discussed options with patient/fam, Discussed risks with patient/fam Note The patient is an appropriate candidate to undergo the planned procedure, sedation, and anesthesia. The patient immediately re-assessed prior to indication. TRENT MORRIS MD FACP FAC CCDS Aug 06, 2016 11:36
[2016-08-06] MEDS ORDERED: PATIENT MAY USE OWN MEDS, ALL PO SCH (12:15)
[2016-08-06] MEDS ORDERED: PRAV20TA PO (12:18)
--- NOTE | 2016-08-06 12:20 | Discharge Inst-Post CATH ---
Discharge Inst-CATH Post Cardiac Cath D/C Inst Follow Up/Plan F/u with Dr Telles in 2-3 weeks CARDIAC CATH DISCHARGE INSTRUCTIONS *Hold Metformin for 48 hours post heart cath. ACTIVITY * Go Home directly and rest. * Limit activity of the leg (or wrist if it was used) for 7 days including aerobics, swimming, jogging, bicycling, etc. * Restrict stair-climbing for 7 days if possible, if not, climb up with your non -cath leg, then bring together on the same step. * Avoid lifting, pushing, pulling or excessive movement of the affected extremity for 7 days. * Customary sexual activity may be resumed after 2 days-use caution not to use a position that strains or causes pain to the affected extremity. * No driving for 24 hours. * NO SMOKING. * Avoid straining for bowel movements for 7 days. * Gentle walking on level ground is allowed. * Returning to work will depend on the type of procedure and the results. Your doctor will discuss this with you. CALL YOUR DOCTOR FOR ANY OF THE FOLLOWING: *If bleeding from the puncture site occurs- Apply gentle pressure to site with clean cloth and call your doctor or EMS. * If a knot or lump forms under the skin, increases in size, or causes pain. * If bruising appears to be worsening or moving further down your leg instead of disappearing. * Temperature above 101 F. CARE OF YOUR GROIN INCISION; * Bruising or purple discoloration of the skin near the puncture site is common. * You may shower only, no bathtub bathing for 5 days. Be careful to avoid slipping as your leg may feel stiff. * If a closure device was used on your femoral artery, please see the attached guide regarding care of the device and your leg. * REMOVE the dressing from your groin the next day after your procedure in the shower. CARE OF YOUR WRIST INCISION; * Bruising or purple discoloration of the skin near the puncture site is common. * You may shower. * DO NOT submerge wrist. * Remove dressing in 24 hours. TRENT TELLES MD [facility] CCDS Aug 06, 2016 12:20
--- NOTE | 2016-08-06 12:20 | Discharge Inst-Cardiology ---
Discharge Inst-Cardiac Discharge Medications New Medications: Pravastatin Sodium (Pravachol) 20 Mg Tablet 20 MG PO DAILY for 90 Days, #90 TAB 3 Refills Continued Medications: Amlodipine Besylate (Amlodipine Besylate) 5 Mg Tablet 5 MG PO DAILY Apixaban (Eliquis) 5 Mg Tablet 5 MG PO BID Levothyroxine Sodium (Levothyroxine Sodium) 25 Mcg Tablet 25 MCG PO DAILY, TAB Lisinopril (Lisinopril) 10 Mg Tablet 10 MG PO DAILY Metoprolol Succinate (Toprol Xl) 100 Mg Tab.er.24h 100 MG PO DAILY Patient Instructions Patient Instructions: F/u with Dr Telles in 2-3 weeks No smoking Activity & Diet Discharge Diet: Cardiac Diet Orders-Post D/C & Referrals Pneu Vac Indicated: Yes TRENT TELLES MD FACP FAC CCDS Aug 06, 2016 12:20
--- NOTE | 2016-08-07 11:15 | CARDIAC CATHETERIZATION ---
PROCEDURE PHYSICIAN: TRENT MORRIS DATE OF PROCEDURE: 08/06/2016 Chris Reyes is a 51-year-old gentleman with a history of near syncope who had a stress test that was borderline abnormal and on ambulatory cardiac monitoring, he had one 7 beat run of wide complex tachycardia 106 beats per minute. Cardiac catheterization was recommended for further evaluation. An informed consent was obtained. PROCEDURE: He was brought to the cardiac catheterization laboratory in a fasting state. The right groin was prepared and draped usual sterile fashion. 1% Lidocaine was used for local anesthesia. Modified Seldinger technique was used to advance a 5-[place] sheath in the right femoral artery. A 5-[place] JL4 catheter was used for left coronary angiography. 5-[place] JR4 catheter for right coronary angiography. 5-[place] pigtail catheter was used for left heart catheterization and left ventricular angiography. The 5-[place] pigtail catheter was pulled back the aortic arch and aortic arch angiography was performed. The pigtail catheter was removed. Angiography of the right femoral artery was carried out through the sheath. Mynx was used to achieve hemostasis. He tolerated the procedure well. HEMODYNAMICS: Left ventricular end diastolic pressure following coronary angiography was 12 mmHg. There was no significant pressure gradient on pullback across the aortic valve. Ascending aortic pressure was 111/76 with a mean of 93 mmHg. LEFT VENTRICULAR ANGIOGRAPHY: Left ventricular angiography was carried out in the right anterior oblique projection. Global left ventricular systolic function is normal. No regional wall motion abnormalities are seen. Left ventricular ejection fraction of approximately 65%. There is no significant mitral regurgitation. AORTIC ARCH ANGIOGRAPHY: Aortic arch angiography did not indicate any thoracic aortic aneurysm or dissection. Neck arteries, to the extent seen, do not exhibit any significant disease. CORONARY ANGIOGRAPHY: The left main coronary artery, left circumflex artery, right coronary artery do not exhibit any angiographically significant disease. Flow throughout all vessels is somewhat sluggish. CONCLUSION: 1. Angiographically normal coronary arteries with somewhat sluggish flow in all coronary vessels. 2. Normal global left ventricular systolic function and ejection fraction of approximately 65%. 3. Normal left ventricular end diastolic pressure. DISCUSSION AND RECOMMENDATIONS: We have advised outpatient follow-up. We have advised him to quit smoking immediately and completely. He has moderate hyperlipidemia. Pravastatin has been added to the regimen. Lab requisition slip has being provided for lab work four weeks following initiation of pravastatin. He has been advised to continue his previous cardiac regimen that includes amlodipine and beta blockers and because of a history of paroxysmal atrial fibrillation, he also remains on apixaban. Job ID: [id number] Dictated Date: 08/06/2016 12:36:05 [employer] L[employer] Date: 08/07/2016 11:05:56 / jama
--- OUTSIDE RECORDS SUMMARY | 2016-08-20 20:24 | XMS REPORT ---
Author Author SASHA POWERS Organization [facility] Address [address] [place] [address] Care Team Providers Care Commercial Credit Lead Name Role Phone SASHA POWERS Unavailable PROBLEMS Type Condition ICD9-CM Code JDB50-SC Code Onset Dates Condition Status SNOMED Code Problem Paroxysmal atrial fibrillation I48.0 Active 107234384 Assessment Hyperthyroidism E05.90 Dec, Active 58869921 Assessment Unspecified atrial fibrillation I48.91 Dec, Active 83514615 Assessment Essential hypertension I10 Dec, Active 92906477 ALLERGIES Substance Reaction Event Type Date Status N.K.D.A. Unknown Non Drug Allergy Dec, Unknown SOCIAL HISTORY No smoking Hx information available PLAN OF CARE VITAL SIGNS Height 71 in 2016-01-01 Weight 169.8 lbs 2016-01-01 Heart Rate 102 bpm 2016-01-01 Respiratory Rate 18 2016-01-01 BMI 23.68 kg/m2 2016-01-01 Blood pressure systolic 132 mmHg 2016-01-01 Blood pressure diastolic 80 mmHg 2016-01-01 MEDICATIONS Medication Instructions Dosage Frequency Start Date End Date Duration Status Methimazole 5 mg Orally every 8 hours 1 tablet with food 8h Oct, Active Metoprolol Succinate ER 100 MG Orally Once a day 1 tablet 24h Oct, Active RESULTS No Results PROCEDURES Procedure Date Ordered Related Diagnosis Body Site Office Visit, Est Pt., Level 3 Jan 01, 2016 IMMUNIZATIONS No Known Immunizations
--- OUTSIDE RECORDS SUMMARY | 2016-08-20 20:24 | XMS REPORT ---
Author Author SASHA POWERS [facility] eClinicalWorks Address Unknown Phone Unavailable Care Team Providers Care Clinical Review Nurse Name Role Phone SASHA POWERS CP Unavailable Allergies, Adverse Reactions, Alerts Substance Reaction Event Type N.K.D.A. Info Not Available Non Drug Allergy Problems Problem Type Condition Code Onset Dates Condition Status Problem Paroxysmal atrial fibrillation I48.0 Active Medications Medication Code System Code Instructions Start Date End Date Status Dosage Metoprolol Succinate ER [facility] [address]-19 100 MG Orally Once a day October 1 tablet Eliquis [facility] [address]-71 5 MG Orally not defined Vital Signs Date/Time: Mar 16, 2016 Blood Pressure Systolic 162 mmHg Cardiac Monitoring Heart Rate 84 bpm Height 71 in Blood Pressure Diastolic 108 mmHg Results No Known Results Summary Purpose eClinicalWorks Submission
--- OUTSIDE RECORDS SUMMARY | 2016-08-20 20:24 | XMS REPORT ---
Author Author SASHA POWERS Organization [facility] Address [address] [place] [address] Care Team Providers Care Associate Civil Engineer Name Role Phone SASHA POWERS Unavailable PROBLEMS Type Condition ICD9-CM Code MIP50-CQ Code Onset Dates Condition Status SNOMED Code Problem Essential hypertension I10 Active 25418617 Problem Postablative hypothyroidism E89.0 Active 248020378 Assessment Essential hypertension I10 Mar, Active 38447045 Problem Atrial fibrillation, unspecified type I48.91 Active 94402356 Problem Paroxysmal atrial fibrillation I48.0 Active 038389458 ALLERGIES Substance Reaction Event Type Date Status [...]
--- OUTSIDE RECORDS SUMMARY | 2016-08-20 20:25 | XMS REPORT | Continuity of Care Document ---
Author Author [facility] Organization [facility] Address Unknown Phone Unavailable Allergies Active Description Code Type Severity Reaction Onset Reported/Identified Relationship to Patient Clinical Status Yes No Known Drug Allergies [id number] Drug Allergy Unknown N/ A 10/16/2015 Medications Problems Date Dx Coded Attending Type Code Diagnosis Diagnosed By 10/17/2015 TRINITY FUNES MD Ot E05.90 THYROTOXICOSIS, UNSP WITHOUT THYROTOXIC 10/17/2015 TRINITY FUNES MD Ot E11.9 TYPE 2 DIABETES MELLITUS WITHOUT COMPLIC 10/17/2015 TRINITY FUNES MD Ot F17.210 NICOTINE DEPENDENCE, CIGARETTES, UNCOMPL 10/17/2015 TRINITY FUNES MD Ot I10 ESSENTIAL (PRIMARY) HYPERTENSION 10/17/2015 TRINITY FUNES MD Ot I48.91 UNSPECIFIED ATRIAL FIBRILLATION 01/31/2016 CRISTAL MCGILL MD Ot E05.90 THYROTOXICOSIS, UNSP WITHOUT THYROTOXIC 01/31/2016 CRISTAL MCGILL MD Ot E21.3 HYPERPARATHYROIDISM, UNSPECIFIED 01/31/2016 CRISTAL MCGILL MD Ot I48.91 UNSPECIFIED ATRIAL FIBRILLATION 02/01/2016 CRISTAL MCGILL MD Ot E05.90 THYROTOXICOSIS, UNSP WITHOUT THYROTOXIC 02/01/2016 CRISTAL MCGILL MD Ot E21.3 HYPERPARATHYROIDISM, UNSPECIFIED 02/01/2016 CRISTAL MCGILL MD Ot I48.91 UNSPECIFIED ATRIAL FIBRILLATION 02/19/2016 CRISTAL MCGILL MD Ot E05.90 THYROTOXICOSIS, UNSP WITHOUT THYROTOXIC 02/19/2016 CRISTAL MCGILL MD Ot E21.3 HYPERPARATHYROIDISM, UNSPECIFIED 02/19/2016 CRISTAL MCGILL MD Ot I48.91 UNSPECIFIED ATRIAL FIBRILLATION 02/21/2016 KASH GILL, BESSY M Ot E05.90 THYROTOXICOSIS, UNSP WITHOUT THYROTOXIC 02/21/2016 CRISTAL MCGILL MD Ot E05.90 THYROTOXICOSIS, UNSP WITHOUT THYROTOXIC 02/21/2016 CRISTAL MCGILL MD E Ot E21.3 HYPERPARATHYROIDISM, UNSPECIFIED 02/21/2016 CRISTAL MCGILL MD E Ot I48.91 UNSPECIFIED ATRIAL FIBRILLATION 02/21/2016 CRISTAL MCGILL MD E Ot E05.90 THYROTOXICOSIS, UNSP WITHOUT THYROTOXIC 02/21/2016 KASH GILL, BESSY M Ot E05.90 THYROTOXICOSIS, UNSP WITHOUT THYROTOXIC 02/22/2016 CRISTAL MCGILL MD E Ot E05.90 THYROTOXICOSIS, UNSP WITHOUT THYROTOXIC 02/28/2016 MAHIN MCGILL MDANE E Ot E05.90 THYROTOXICOSIS, UNSP WITHOUT THYROTOXIC 02/28/2016 CRISTAL MCGILL MD Ot E21.3 HYPERPARATHYROIDISM, UNSPECIFIED 02/28/2016 CRISTAL MCGILL MD E Ot I48.91 UNSPECIFIED ATRIAL FIBRILLATION 02/28/2016 MAHIN MCGILL MDANE E Ot E05.90 THYROTOXICOSIS, UNSP WITHOUT THYROTOXIC 03/06/2016 KASH GILL, BESSY Millan Ot E05.90 THYROTOXICOSIS, UNSP WITHOUT THYROTOXIC 03/14/2016 CRISTAL MCGILL MD E Ot E05.90 THYROTOXICOSIS, UNSP WITHOUT THYROTOXIC 03/14/2016 CRISTAL MCGILL MD E Ot E21.3 HYPERPARATHYROIDISM, UNSPECIFIED 03/14/2016 MAHIN MCGILL MDANE E Ot I48.91 UNSPECIFIED ATRIAL FIBRILLATION 03/14/2016 MAHIN MCGILL MDANE E Ot E05.90 THYROTOXICOSIS, UNSP WITHOUT THYROTOXIC 03/14/2016 KASH GILL, BESSY M Ot E05.90 THYROTOXICOSIS, UNSP WITHOUT THYROTOXIC 03/14/2016 CRISTAL MCGILL MD E Ot E05.90 THYROTOXICOSIS, UNSP WITHOUT THYROTOXIC 03/14/2016 CRISTAL MCGILL MD E Ot E21.3 HYPERPARATHYROIDISM, UNSPECIFIED 03/14/2016 MAHIN MCGILL MDANE E Ot I48.91 UNSPECIFIED ATRIAL FIBRILLATION 03/26/2016 CRISTAL MCGILL MD E Ot E05.90 THYROTOXICOSIS, UNSP WITHOUT THYROTOXIC 03/26/2016 CRISTAL MCGILL MD E Ot E21.3 HYPERPARATHYROIDISM, UNSPECIFIED 03/26/2016 AMHIN MCGILL MDANE E Ot I48.91 UNSPECIFIED ATRIAL FIBRILLATION 03/26/2016 MAHIN MCGILL MDANE E Ot E05.90 THYROTOXICOSIS, UNSP WITHOUT THYROTOXIC 03/27/2016 KASH GILL, BESSY Millan Ot E05.90 THYROTOXICOSIS, UNSP WITHOUT THYROTOXIC 04/16/2016 CRISTAL MCGILL MD E Ot E05.90 THYROTOXICOSIS, UNSP WITHOUT THYROTOXIC 04/16/2016 CRISTAL MCGILL MD E Ot E21.3 HYPERPARATHYROIDISM, UNSPECIFIED 04/16/2016 MAHIN MCGILL MDANE E Ot I48.91 UNSPECIFIED ATRIAL FIBRILLATION 04/16/2016 CRISTAL MCGILL MD E Ot E05.90 THYROTOXICOSIS, UNSP WITHOUT THYROTOXIC 04/16/2016 CRISTAL MCGILL MD E Ot E21.3 HYPERPARATHYROIDISM, UNSPECIFIED 04/16/2016 ARTEM GILL, CRISTAL E Ot I48.91 UNSPECIFIED ATRIAL FIBRILLATION 04/16/2016 CRISTAL MCGILL MD E Ot E05.90 THYROTOXICOSIS, UNSP WITHOUT THYROTOXIC 04/16/2016 KASH GILL, BESSY Millan Ot E05.90 THYROTOXICOSIS, UNSP WITHOUT THYROTOXIC 04/16/2016 CRISTAL MCGILL MD E Ot E05.90 THYROTOXICOSIS, UNSP WITHOUT THYROTOXIC 04/17/2016 CRISTAL MCGILL MD E Ot E05.90 THYROTOXICOSIS, UNSP WITHOUT THYROTOXIC 04/17/2016 CRISTAL MCGILL MD Ot E21.3 HYPERPARATHYROIDISM, UNSPECIFIED 04/17/2016 CRISTAL MCIGLL MD E Ot I48.91 UNSPECIFIED ATRIAL FIBRILLATION 04/24/2016 CRISTAL MCGILL MD E Ot E05.90 THYROTOXICOSIS, UNSP WITHOUT THYROTOXIC 04/24/2016 KASH GILL, BESSY iMllan Ot E05.90 THYROTOXICOSIS, UNSP WITHOUT THYROTOXIC 04/24/2016 CRISTAL MCGILL MD E Ot E05.90 THYROTOXICOSIS, UNSP WITHOUT THYROTOXIC 04/24/2016 CRISTAL MCGILL MD E Ot E21.3 HYPERPARATHYROIDISM, UNSPECIFIED 04/24/2016 CRISTAL MCGILL MD E Ot I48.91 UNSPECIFIED ATRIAL FIBRILLATION 04/26/2016 CRISTAL MCGILL MD E Ot E05.90 THYROTOXICOSIS, UNSP WITHOUT THYROTOXIC 04/26/2016 BESSY HEWITT MD Ot E05.90 THYROTOXICOSIS, UNSP WITHOUT THYROTOXIC 04/26/2016 CRISTAL MCGILL MD E Ot E05.90 THYROTOXICOSIS, UNSP WITHOUT THYROTOXIC 04/26/2016 MAHIN MCGILL MDANE E Ot E21.3 HYPERPARATHYROIDISM, UNSPECIFIED 04/26/2016 ARTEM GILL, CRISTAL Smith Ot I48.91 UNSPECIFIED ATRIAL FIBRILLATION 06/11/2016 KASH GILL, BESSY Millan Ot E05.90 THYROTOXICOSIS, UNSP WITHOUT THYROTOXIC 06/11/2016 KASH GILL, BESSY Millan Ot E05.90 THYROTOXICOSIS, UNSP WITHOUT THYROTOXIC 06/14/2016 SHANNAN ALEGRIA PET STYLIST Ot E05.90 THYROTOXICOSIS, UNSP WITHOUT THYROTOXIC 06/14/2016 SHANNAN ALEGRIA PET STYLIST Ot E11.9 TYPE 2 DIABETES MELLITUS WITHOUT COMPLIC 06/14/2016 SHANNAN ALEGRIA PET STYLIST Ot F17.210 NICOTINE DEPENDENCE, CIGARETTES, UNCOMPL 06/14/2016 SHANNAN ALEGRIA APRN Ot G47.00 INSOMNIA, UNSPECIFIED 06/14/2016 SHANNAN ALEGRIA APRN Ot R25.2 CRAMP AND SPASM 06/14/2016 SHANNAN ALEGRIA APRN Ot Z79.899 OTHER LONGTERM (CURRENT) DRUG THERAPY 06/16/2016 SHANNAN ALEGRIA PET STYLIST Ot E05.90 THYROTOXICOSIS, UNSP WITHOUT THYROTOXIC 06/16/2016 SHANNAN ALEGRIA PET STYLIST Ot E11.9 TYPE 2 DIABETES MELLITUS WITHOUT COMPLIC 06/16/2016 SHANNAN ALEGRIA PET STYLIST Ot F17.210 NICOTINE DEPENDENCE, CIGARETTES, UNCOMPL 06/16/2016 SHANNAN ALEGRIA PET STYLIST Ot G47.00 INSOMNIA, UNSPECIFIED 06/16/2016 SHANNAN ALEGRIA PET STYLIST Ot R25.2 CRAMP AND SPASM 06/16/2016 SHANNAN ALEGRIA PET STYLIST Ot Z79.899 OTHER HAND ETCHER HELPER (CURRENT) DRUG THERAPY 06/25/2016 KYE GILL, ERIK Llanos Ot E03.9 HYPOTHYROIDISM, UNSPECIFIED 06/25/2016 ERIK FISHMAN MD Ot F17.210 NICOTINE DEPENDENCE, CIGARETTES, UNCOMPL 06/25/2016 ERIK FISHMAN MD Ot I48.0 PAROXYSMAL ATRIAL FIBRILLATION 06/25/2016 ERIK FISHMAN MD Ot R07.9 CHEST PAIN, UNSPECIFIED 06/25/2016 ERIK FISHMAN MD Ot R55 SYNCOPE AND COLLAPSE 06/25/2016 ERIK FISHMAN MD Ot Z79.01 HAND ETCHER HELPER (CURRENT) USE OF ANTICOAGULANT 06/25/2016 ERIK FISHMAN MD Ot Z79.899 OTHER HAND ETCHER HELPER (CURRENT) DRUG THERAPY 06/26/2016 ERIK FISHMAN MD Ot E03.9 HYPOTHYROIDISM, UNSPECIFIED 06/26/2016 ERIK FISHMAN MD Ot F17.210 NICOTINE DEPENDENCE, CIGARETTES, UNCOMPL 06/26/2016 ERIK FISHMAN MD Ot R07.9 CHEST PAIN, UNSPECIFIED 06/26/2016 ERIK FISHMAN MD Ot R55 SYNCOPE AND COLLAPSE 06/26/2016 ERIK FISHMAN MD Ot Z79.01 LONGTERM (CURRENT) USE OF ANTICOAGULANT 06/26/2016 ERIK FISHMAN MD Ot Z79.899 OTHER HAND ETCHER HELPER (CURRENT) DRUG THERAPY 06/26/2016 ERIK FISHMAN MD Ot E03.9 HYPOTHYROIDISM, UNSPECIFIED 06/26/2016 ERIK FISHMAN MD Ot F17.210 NICOTINE DEPENDENCE, CIGARETTES, UNCOMPL 06/26/2016 ERIK FISHMAN MD Ot I48.0 PAROXYSMAL ATRIAL FIBRILLATION 06/26/2016 ERIK FISHMAN MD Ot R07.9 CHEST PAIN, UNSPECIFIED 06/26/2016 ERIK FISHMAN MD Ot R55 SYNCOPE AND COLLAPSE 06/26/2016 ERIK FISHMAN MD Ot Z79.01 LONGTERM (CURRENT) USE OF ANTICOAGULANT 06/26/2016 ERIK FISHMAN MD T Ot Z79.899 OTHER HAND ETCHER HELPER (CURRENT) DRUG THERAPY 06/26/2016 KASH GILL, BESSY M Ot E05.90 THYROTOXICOSIS, UNSP WITHOUT THYROTOXIC 06/27/2016 ERIK FISHMAN MD Ot E03.9 HYPOTHYROIDISM, UNSPECIFIED 06/27/2016 ERIK FISHMAN MD Ot F17.210 NICOTINE DEPENDENCE, CIGARETTES, UNCOMPL 06/27/2016 ERIK FISHMAN MD Ot I48.0 PAROXYSMAL ATRIAL FIBRILLATION 06/27/2016 ERIK FISHMAN MD Ot R07.9 CHEST PAIN, UNSPECIFIED 06/27/2016 ERIK FISHMAN MD Ot R55 SYNCOPE AND COLLAPSE 06/27/2016 KYE GILL, ERIK Llanos Ot Z79.01 HAND ETCHER HELPER (CURRENT) USE OF ANTICOAGULANT 06/27/2016 ERIK FISHMAN MD Ot Z79.899 OTHER LONGTERM (CURRENT) DRUG THERAPY 07/09/2016 ARTEM GILL, CRISTAL Smith Ot E05.90 THYROTOXICOSIS, UNSP WITHOUT THYROTOXIC 07/09/2016 KASH GILL, BESSY Millan Ot E05.90 THYROTOXICOSIS, UNSP WITHOUT THYROTOXIC 07/09/2016 CRISTAL MCGILL MD Ot E05.90 THYROTOXICOSIS, UNSP WITHOUT THYROTOXIC 07/09/2016 CRISTAL MCGILL MD Ot E21.3 HYPERPARATHYROIDISM, UNSPECIFIED 07/09/2016 CRISTAL MCGILL MD Ot I48.91 UNSPECIFIED ATRIAL FIBRILLATION 07/09/2016 KASH GILL, BESSY Millan Ot E05.90 THYROTOXICOSIS, UNSP WITHOUT THYROTOXIC 07/12/2016 KASH GILL, BESSY Millan Ot E05.90 THYROTOXICOSIS, UNSP WITHOUT THYROTOXIC 07/23/2016 CRISTAL MCGILL MD Ot E05.90 THYROTOXICOSIS, UNSP WITHOUT THYROTOXIC 07/23/2016 KASH GILL, BESSY Millan Ot E05.90 THYROTOXICOSIS, UNSP WITHOUT THYROTOXIC 07/23/2016 ARTEM GILL, CRISTAL Smith Ot E05.90 THYROTOXICOSIS, UNSP WITHOUT THYROTOXIC 07/23/2016 CRISTAL MCGILL MD Ot E21.3 HYPERPARATHYROIDISM, UNSPECIFIED 07/23/2016 CRISTAL MCGILL MD Ot I48.91 UNSPECIFIED ATRIAL FIBRILLATION 07/24/2016 ARTURO GILL FACC, ALI FACP CCDS Ot E89.0 POSTPROCEDURAL HYPOTHYROIDISM 07/24/2016 ARTURO GILL FACC, ALI FACP CCDS Ot I48.0 PAROXYSMAL ATRIAL FIBRILLATION 07/24/2016 ARTURO GILL FACC, ALI FACP CCDS Ot R07.89 OTHER CHEST PAIN 07/24/2016 ARTURO GILL FACC, ALI FACP CCDS Ot R55 SYNCOPE AND COLLAPSE 07/24/2016 ARTURO GILL FACC, ALI FACP CCDS Ot Z72.0 TOBACCO USE 08/01/2016 CRISTAL MCGILL MD Ot E05.90 THYROTOXICOSIS, UNSP WITHOUT THYROTOXIC 08/01/2016 KASH GILL, BESSY Millan Ot E05.90 THYROTOXICOSIS, UNSP WITHOUT THYROTOXIC 08/01/2016 CRISTAL MCGILL MD Ot E05.90 THYROTOXICOSIS, UNSP WITHOUT THYROTOXIC 08/01/2016 CRISTAL MCGILL MD Ot E21.3 HYPERPARATHYROIDISM, UNSPECIFIED 08/01/2016 CRISTAL MCGILL MD Ot I48.91 UNSPECIFIED ATRIAL FIBRILLATION 08/01/2016 KASH GILL, BESSY Millan Ot E05.90 THYROTOXICOSIS, UNSP WITHOUT THYROTOXIC 08/01/2016 ARTURO GILL FACC, ALI FACP CCDS Ot E89.0 POSTPROCEDURAL HYPOTHYROIDISM 08/01/2016 ARTURO GILL FACC, ALI FACP CCDS Ot I48.0 PAROXYSMAL ATRIAL FIBRILLATION 08/01/2016 ARTURO GILL FACC, ALI FACP CCDS Ot R07.89 OTHER CHEST PAIN 08/01/2016 ARTURO GILL FACC, ALI FACP CCDS Ot R55 SYNCOPE AND COLLAPSE 08/01/2016 ARTURO GILL FACC, ALI FACP CCDS Ot Z72.0 TOBACCO USE 08/02/2016 BESSY HEWITT MD Ot E05.90 THYROTOXICOSIS, UNSP WITHOUT THYROTOXIC 08/07/2016 ARTURO GILL FACC, ALI FACP CCDS Ot E89.0 POSTPROCEDURAL HYPOTHYROIDISM 08/07/2016 ARTURO GILL FACC, ALI FACP CCDS Ot I48.0 PAROXYSMAL ATRIAL FIBRILLATION 08/07/2016 ARTURO GILL FACC, ALI FACP CCDS Ot R07.89 OTHER CHEST PAIN 08/07/2016 ARTURO GILL FACC, ALI FACP CCDS Ot R55 SYNCOPE AND COLLAPSE 08/07/2016 ARTURO YUNC, ALI FACP CCDS Ot Z72.0 TOBACCO USE 08/09/2016 BAIMACOLLEENELLIE L GLOBAL CLIMATE CHANGE ANALYST Ot E11.9 TYPE 2 DIABETES MELLITUS WITHOUT COMPLIC 08/09/2016 KRISTINMA, ELLIE L GLOBAL CLIMATE CHANGE ANALYST Ot E78.5 HYPERLIPIDEMIA, UNSPECIFIED 08/09/2016 KRISTINMA, ELLIE L GLOBAL CLIMATE CHANGE ANALYST Ot I48.0 PAROXYSMAL ATRIAL FIBRILLATION 08/09/2016 BAIMA ELLIE L GLOBAL CLIMATE CHANGE ANALYST Ot R00.0 TACHYCARDIA, UNSPECIFIED 08/09/2016 BAIMA, ELLIE L GLOBAL CLIMATE CHANGE ANALYST Ot R07.89 OTHER CHEST PAIN 08/09/2016 ELLIE BAEZ GLOBAL CLIMATE CHANGE ANALYST Ot R55 SYNCOPE AND COLLAPSE 08/09/2016 ELLIE BAEZ GLOBAL CLIMATE CHANGE ANALYST Ot Z72.0 TOBACCO USE 08/09/2016 ELLIE BAEZ GLOBAL CLIMATE CHANGE ANALYST Ot Z79.84 HAND ETCHER HELPER (CURRENT) USE OF ORAL HYPOGLYC 08/14/2016 KASH GILL, BESSY Millan Ot E05.90 THYROTOXICOSIS, UNSP WITHOUT THYROTOXIC 08/15/2016 ARTURO GILL FACC, ALI FACP CCDS Ot E89.0 POSTPROCEDURAL HYPOTHYROIDISM 08/15/2016 ARTURO GILL FACC, ALI FACP CCDS Ot I48.0 PAROXYSMAL ATRIAL FIBRILLATION 08/15/2016 ARTURO GILL FACC, ALI FACP CCDS Ot R07.89 OTHER CHEST PAIN 08/15/2016 ARTURO GILL FACC, ALI FACP CCDS Ot R55 SYNCOPE AND COLLAPSE 08/15/2016 ARTURO GILL FACC, ALI FACP CCDS Ot Z72.0 TOBACCO USE 08/15/2016 KASH GILL, BESSY Millan Ot E05.90 THYROTOXICOSIS, UNSP WITHOUT THYROTOXIC Procedures Results Test Result Range THYROID STIMULATING HORMONE - 06/10/16 17:17 THYROID STIMULATING HORMONE 0.63 u[iU]/mL 0.35-4.94 Total triiodothyronine (T3) measurement - 06/10/16 17:17 Total triiodothyronine (T3) measurement 0.7 % 0.6-1.8 Thyroxine (T4) measurement - 06/10/16 17:17 T4 (thyroxine) 4.1 % 5.5-12.0 Complete blood count (CBC) with automated white blood cell (WBC) differential - 06/14/16 15:40 Blood leukocytes automated count (number/volume) 9.5 10*3/ uL 4.3-11.0 Blood erythrocytes automated count (number/volume) 5.80 10*6 /uL 4.35-5.85 Venous blood hemoglobin measurement (mass/volume) 17.5 g/dL 13.3-17.7 Blood hematocrit (volume fraction) 50 % 40-54 Automated erythrocyte mean corpuscular volume 86 [foz_us] 80-99 Automated erythrocyte mean corpuscular hemoglobin (mass per erythrocyte) 30 pg 25-34 Automated erythrocyte mean corpuscular hemoglobin concentration measurement ( mass/volume) 35 g/dL 32-36 Automated erythrocyte distribution width ratio 14.9 % 10.0-14.5 Automated blood platelet count (count/volume) 287 10*3/uL 130-400 Automated blood platelet mean volume measurement 9.2 [foz_us ] 7.4-10.4 Automated blood neutrophils/100 leukocytes 74 % 42-75 Automated blood lymphocytes/100 leukocytes 18 % 12-44 Blood monocytes/100 leukocytes 6 % 0-12 Automated blood eosinophils/100 leukocytes 1 % 0-10 Automated blood basophils/100 leukocytes 0 % 0-10 Blood neutrophils automated count (number/volume) 7.1 10*3 1.8-7.8 Blood lymphocytes automated count (number/volume) 1.7 10*3 1.0-4.0 Blood monocytes automated count (number/volume) 0.6 10*3 0.0-1.0 Automated eosinophil count 0.1 10*3/uL 0.0-0.3 Automated blood basophil count (count/volume) 0.0 10*3/uL 0.0-0.1 Comprehensive metabolic panel - 06/14/16 15:40 Serum or plasma sodium measurement (moles/volume) 133 mmol/ L 135-145 Serum or plasma potassium measurement (moles/volume) 4.3 mmol/L 3.6-5.0 Serum or plasma chloride measurement (moles/volume) 103 mmol /L 98-107 Carbon dioxide 20 mmol/L 21-32 Serum or plasma anion gap determination (moles/volume) 10 mmol/L 5-14 Serum or plasma urea nitrogen measurement (mass/volume) 17 mg/dL 7-18 Serum or plasma creatinine measurement (mass/volume) 0.75 mg /dL 0.60-1.30 Serum or plasma urea nitrogen/creatinine mass ratio 23 NRG Serum or plasma creatinine measurement with calculation of estimated glomerular filtration rate > NRG Serum or plasma glucose measurement (mass/volume) 97 mg/dL 70-105 Serum or plasma calcium measurement (mass/volume) 9.0 mg/dL 8.5-10.1 Serum or plasma total bilirubin measurement (mass/volume) 0.7 mg/dL 0.1-1.0 Serum or plasma alkaline phosphatase measurement (enzymatic activity/volume) 140 U/L 40-136 Serum or plasma aspartate aminotransferase measurement (enzymatic activity/ volume) 36 U/L 5-34 Serum or plasma alanine aminotransferase measurement (enzymatic activity/volume ) 26 U/L 0-55 Serum or plasma protein measurement (mass/volume) 7.7 g/dL 6.4-8.2 Serum or plasma albumin measurement (mass/volume) 4.6 g/dL 3.2-4.5 THYROID STIMULATING HORMONE - 06/14/16 15:40 THYROID STIMULATING HORMONE 1.59 u[iU]/mL 0.35-4.94 Serum or plasma thyroxine (T4) free measurement (mass/volume) - 06/14/16 15:40 Serum or plasma thyroxine (T4) free measurement (mass/volume) 0.51 ng/dL 0.70-1.48 Complete blood count (CBC) with automated white blood cell (WBC) differential - 06/25/16 16:30 Blood leukocytes automated count (number/volume) 6.4 10*3/ uL 4.3-11.0 Blood erythrocytes automated count (number/volume) 5.36 10*6 /uL 4.35-5.85 Venous blood hemoglobin measurement (mass/volume) 16.4 g/dL 13.3-17.7 Blood hematocrit (volume fraction) 48 % 40-54 Automated erythrocyte mean corpuscular volume 89 [foz_us] 80-99 Automated erythrocyte mean corpuscular hemoglobin (mass per erythrocyte) 31 pg 25-34 Automated erythrocyte mean corpuscular hemoglobin concentration measurement ( mass/volume) 35 g/dL 32-36 Automated erythrocyte distribution width ratio 15.6 % 10.0-14.5 Automated blood platelet count (count/volume) 248 10*3/uL 130-400 Automated blood platelet mean volume measurement 9.2 [foz_us ] 7.4-10.4 Automated blood neutrophils/100 leukocytes 65 % 42-75 Automated blood lymphocytes/100 leukocytes 27 % 12-44 Blood monocytes/100 leukocytes 5 % 0-12 Automated blood eosinophils/100 leukocytes 2 % 0-10 Automated blood basophils/100 leukocytes 1 % 0-10 Blood neutrophils automated count (number/volume) 4.2 10*3 1.8-7.8 Blood lymphocytes automated count (number/volume) 1.7 10*3 1.0-4.0 Blood monocytes automated count (number/volume) 0.3 10*3 0.0-1.0 Automated eosinophil count 0.1 10*3/uL 0.0-0.3 Automated blood basophil count (count/volume) 0.1 10*3/uL 0.0-0.1 PT panel in platelet poor plasma by coagulation assay - 06/25/16 16:30 Prothrombin time (PT) in platelet poor plasma by coagulation assay 13.2 s 12.2-14.7 INR in platelet poor plasma or blood by coagulation assay 1.0 0.8-1.4 Activated partial thromboplastin time (aPTT) in platelet poor plasma bycoagulation assay - 06/25/16 16:30 Activated partial thromboplastin time (aPTT) in platelet poor plasma bycoagulation assay 30 s 24-35 Comprehensive metabolic panel - 06/25/16 16:30 Serum or plasma sodium measurement (moles/volume) 139 mmol/ L 135-145 Serum or plasma potassium measurement (moles/volume) 3.7 mmol/L 3.6-5.0 Serum or plasma chloride measurement (moles/volume) 104 mmol /L 98-107 Carbon dioxide 21 mmol/L 21-32 Serum or plasma anion gap determination (moles/volume) 14 mmol/L 5-14 Serum or plasma urea nitrogen measurement (mass/volume) 15 mg/dL 7-18 Serum or plasma creatinine measurement (mass/volume) 0.95 mg /dL 0.60-1.30 Serum or plasma urea nitrogen/creatinine mass ratio 16 NRG Serum or plasma creatinine measurement with calculation of estimated glomerular filtration rate > NRG Serum or plasma glucose measurement (mass/volume) 187 mg/dL 70-105 Serum or plasma calcium measurement (mass/volume) 8.5 mg/dL 8.5-10.1 Serum or plasma total bilirubin measurement (mass/volume) 0.4 mg/dL 0.1-1.0 Serum or plasma alkaline phosphatase measurement (enzymatic activity/volume) 114 U/L 40-136 Serum or plasma aspartate aminotransferase measurement (enzymatic activity/ volume) 30 U/L 5-34 Serum or plasma alanine aminotransferase measurement (enzymatic activity/volume ) 21 U/L 0-55 Serum or plasma protein measurement (mass/volume) 7.3 g/dL 6.4-8.2 Serum or plasma albumin measurement (mass/volume) 4.3 g/dL 3.2-4.5 Magnesium - 06/25/16 16:30 Magnesium 2.4 mg/dL 1.8-2.4 Serum or plasma troponin i.cardiac measurement (mass/volume) - 06/25/16 16:30 Serum or plasma troponin i.cardiac measurement (mass/volume) < ng/mL <0.30 Myoglobin, serum - 06/25/16 16:30 Myoglobin, serum 87.2 ng/mL 10.0-92.0 THYROID STIMULATING HORMONE - 06/25/16 16:30 THYROID STIMULATING HORMONE 7.43 u[iU]/mL 0.35-4.94 Serum or plasma thyroxine (T4) free measurement (mass/volume) - 06/25/16 16:30 Serum or plasma thyroxine (T4) free measurement (mass/volume) 0.40 ng/dL 0.70-1.48 Serum or plasma lithium measurement (moles/volume) - 06/25/16 16:30 BNP level < pg/mL <100.0 THYROID STIMULATING HORMONE - 08/01/16 13:18 THYROID STIMULATING HORMONE 12.08 u[iU]/mL 0.35-4.94 Total triiodothyronine (T3) measurement - 08/01/16 13:18 Total triiodothyronine (T3) measurement 0.8 % 0.6-1.8 Thyroxine (T4) measurement - 08/01/16 13:18 T4 (thyroxine) 5.3 % 5.5-12.0 Automated blood complete blood count (hemogram) panel - 08/06/16 08:42 Blood leukocytes automated count (number/volume) 7.2 10*3/ uL 4.3-11.0 Blood erythrocytes automated count (number/volume) 5.42 10*6 /uL 4.35-5.85 Venous blood hemoglobin measurement (mass/volume) 17.0 g/dL 13.3-17.7 Blood hematocrit (volume fraction) 50 % 40-54 Automated erythrocyte mean corpuscular volume 91 [foz_us] 80-99 Automated erythrocyte mean corpuscular hemoglobin (mass per erythrocyte) 31 pg 25-34 Automated erythrocyte mean corpuscular hemoglobin concentration measurement ( mass/volume) 34 g/dL 32-36 Automated erythrocyte distribution width ratio 14.9 % 10.0-14.5 Automated blood platelet count (count/volume) 232 10*3/uL 130-400 Automated blood platelet mean volume measurement 9.4 [foz_us ] 7.4-10.4 PT panel in platelet poor plasma by coagulation assay - 08/06/16 08:42 Prothrombin time (PT) in platelet poor plasma by coagulation assay 12.5 s 12.2-14.7 INR in platelet poor plasma or blood by coagulation assay 1.0 0.8-1.4 Activated partial thromboplastin time (aPTT) in platelet poor plasma bycoagulation assay - 08/06/16 08:42 Activated partial thromboplastin time (aPTT) in platelet poor plasma bycoagulation assay 29 s 24-35 Comprehensive metabolic panel - 08/06/16 08:42 Serum or plasma sodium measurement (moles/volume) 137 mmol/ L 135-145 Serum or plasma potassium measurement (moles/volume) 4.4 mmol/L 3.6-5.0 Serum or plasma chloride measurement (moles/volume) 103 mmol /L 98-107 Carbon dioxide 24 mmol/L 21-32 Serum or plasma anion gap determination (moles/volume) 10 mmol/L 5-14 Serum or plasma urea nitrogen measurement (mass/volume) 16 mg/dL 7-18 Serum or plasma creatinine measurement (mass/volume) 0.83 mg /dL 0.60-1.30 Serum or plasma urea nitrogen/creatinine mass ratio 19 NRG Serum or plasma creatinine measurement with calculation of estimated glomerular filtration rate > NRG Serum or plasma glucose measurement (mass/volume) 127 mg/dL 70-105 Serum or plasma calcium measurement (mass/volume) 8.8 mg/dL 8.5-10.1 Serum or plasma total bilirubin measurement (mass/volume) 0.6 mg/dL 0.1-1.0 Serum or plasma alkaline phosphatase measurement (enzymatic activity/volume) 91 U/L 40-136 Serum or plasma aspartate aminotransferase measurement (enzymatic activity/ volume) 23 U/L 5-34 Serum or plasma alanine aminotransferase measurement (enzymatic activity/volume ) 17 U/L 0-55 Serum or plasma protein measurement (mass/volume) 7.4 g/dL 6.4-8.2 Serum or plasma albumin measurement (mass/volume) 4.4 g/dL 3.2-4.5 Lipid 1996 panel - 08/06/16 08:42 Serum or plasma triglyceride measurement (mass/volume) 190 mg/dL <150 Serum or plasma cholesterol measurement (mass/volume) 218 mg /dL < 200 Serum or plasma cholesterol in HDL measurement (mass/volume) 39 mg/dL 40-60 Cholesterol in LDL [mass/volume] in serum or plasma by direct assay 148 mg/dL 1-129 Serum or plasma cholesterol in VLDL measurement (mass/volume) 38 mg/dL 5-40 Methicillin resistant Staphylococcus aureus (MRSA) screening culture - 08:42 MRSA SCREEN RESULT MRSA ISOLATED NRG Encounters ACCT No. Visit Date/Time Discharge Status Pt. Type Provider Facility Loc./Unit Complaint [id number] 08/06/2016 08:07:00 2016 16:00:00 DIS Outpatient ELLIE BAEZ [facility] CATH PAF,NEAR SYNCOPE,DM TYPE 2, CHEST DISCOMFORT [id number] 06/25/2016 16:13:00 2016 18:50:00 DIS Emergency KYE GILL, EIRK Llanos [facility] ER CP,FACIAL NUMBNESS [id number] 06/14/2016 15:20:00 2016 17:09:00 DIS Emergency SHANNAN ALEGRIA APRN [facility] ER UNABLE TO SLEEP/L SIDE NECK PAIN [id number] 01/17/2016 13:12:00 2015 00:01:00 DIS Outpatient ARTEM GILL, CRISTAL Smith [facility] ONC [id number] 10/16/2015 16:15:00 2015 11:03:00 DIS Inpatient SHANTEL GILL, TRINITY Rosales [facility] ICU AFIB/RVR,NIDDM,HYPERTHYROIDISM [id number] 08/13/2016 11:45:00 PEN Preadmit ARTURO GILL FACAnn-Marie , TRENT RICE CCDS [facility] RAD WIDE COMPLEX TACHYCARDIA,TOBACCO USER,PAF,NEAR SYN [id number] 08/01/2016 13:57:00 ACT Outpatient BESSY HEWITT MD [facility] LAB RADIOACTIVE THYROID ABLATION,SEVERE HYPERTHYROID [id number] 07/23/2016 10:30:00 ACT Outpatient ARTURO GILL FACC, TRENT RICE CCDS [facility] CARD NEAR SYNCOPE,PAF [id number] 06/10/2016 16:58:00 ACT Outpatient BESSY HEWITT MD [facility] LAB THYROID ABLATION,HYPERACTIVE THYROID [id number] 04/17/2016 00:09:00 PEN Preadmit ARTEM GILL, CRISTAL Smith [facility] ONC [id number] 03/26/2016 14:35:00 ACT Outpatient BSESY HEWITT MD [facility] LAB THYROID ABLATION [id number] 02/20/2016 13:23:00 ACT Outpatient BESSY HEWITT MD [facility] LAB THYROID ABLATION [id number] 01/24/2016 12:09:00 ACT Outpatient CRISTAL MCGILL MD [facility] CARD 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
--- OUTSIDE RECORDS SUMMARY | 2016-08-20 20:25 | XMS REPORT ---
Author Author SASHA POWERS [facility] eClinicalWorks Address Unknown Phone Unavailable Care Team Providers Care Pickling Grader Name Role Phone SASHA POWERS CP Unavailable Allergies, Adverse Reactions, Alerts Substance Reaction Event Type N.K.D.A. Info Not Available Non Drug Allergy Problems Problem Type Condition Code Onset Dates Condition Status Assessment Hyperthyroidism E05.90 Active Assessment Essential hypertension I10 Active Assessment Arthralgia, unspecified joint M25.50 Active Assessment Atrial fibrillation, unspecified type I48.91 Active Medications Medication Code System Code Instructions Start Date End Date Status Dosage Tylenol/Codeine #3 [facility] [address]-79 300-30 MG Orally every 6 hrs November 23, 2015 1 tablet as needed Methimazole [facility] [address]-95 5 mg Orally every 8 hours October 17, 2015 1 tablet with food Metoprolol Succinate ER [facility] [address]-48 50 mg Orally Once a day October 17, 2015 1 tablet Xarelto [facility] [address]-64 20 mg Orally Once a day (#60) October 17, 2015 1 tablet with food Procedures Procedure Coding System Code Date Office Visit, Est Pt., Level 3 CPT-4 58203 November 23, 2015 Vital Signs Date/Time: November 23, 2015 Cardiac Monitoring Heart Rate 92 bpm Weight 164 lbs Height 71 in BMI 22.87 Index Blood Pressure Diastolic 90 mmHg Blood Pressure Systolic 150 mmHg Results No Known Results Summary Purpose eClinicalWorks Submission
--- OUTSIDE RECORDS SUMMARY | 2016-08-20 20:25 | XMS REPORT ---
Author Author SASHA POWERS [facility] eClinicalWorks Address Unknown Phone Unavailable Care Team Providers Care Pilot Can Router Name Role Phone SASHA POWERS CP Unavailable Allergies No Known Allergies Problems Problem Type Condition Code Onset Dates Condition Status Assessment Blurred vision H53.8 Active Assessment Atrial fibrillation, unspecified type I48.91 Active Problem Paroxysmal atrial fibrillation I48.0 Active Assessment Hyperthyroidism E05.90 Active Medications No Known Medications Results No Known Results Summary Purpose eClinicalWorks Submission
--- OUTSIDE RECORDS SUMMARY | 2016-08-20 20:25 | XMS REPORT ---
Author Author SASHA POWERS [facility] Address [address] [place] [address] Care Team Providers Care K9 Handler Name Role Phone SASHA POWERS Unavailable PROBLEMS Type Condition ICD9-CM Code [id number] Code Onset Dates Condition Status SNOMED Code Problem Essential hypertension I10 Active 97224923 Problem Postablative hypothyroidism E89.0 Active 817902344 Problem Atrial fibrillation, unspecified type I48.91 Active 92917661 Problem Paroxysmal atrial fibrillation I48.0 Active 711599708 ALLERGIES Unknown Allergies SOCIAL HISTORY No smoking Hx information available PLAN OF CARE VITAL SIGNS MEDICATIONS Medication Instructions Dosage Frequency Start Date End Date Duration Status Lisinopril 40 MG Orally Once a day 1 tablet 24h Mar, Active RESULTS No Results PROCEDURES No Known procedures IMMUNIZATIONS No Known Immunizations
--- OUTSIDE RECORDS SUMMARY | 2016-08-20 20:25 | XMS REPORT ---
Author Author SASHA POWERS [facility] eClinicalWorks Address Unknown Phone Unavailable Care Team Providers Care Data Center Technician Name Role Phone SASHA POWERS CP Unavailable Allergies, Adverse Reactions, Alerts Substance Reaction Event Type N.K.D.A. Info Not Available Non Drug Allergy Problems Problem Type Condition Code Onset Dates Condition Status Assessment Eczema, unspecified eczema L30.9 Active Medications Medication Code System Code Instructions Start Date End Date Status Dosage Triamcinolone Acetonide [facility] [address]-34 0.5 % Externally Twice a day Feb 18, 2015 1 application to affected area Procedures Procedure Coding System Code Date Office Visit, New Pt., Level 2 CPT-4 92208 Feb 18, 2015 Vital Signs Date/Time: Feb 18, 2015 Cardiac Monitoring Heart Rate 84 bpm Temperature 99.0 F Weight 161.9 lbs Blood Pressure Diastolic 88 mmHg Blood Pressure Systolic 140 mmHg Results No Known Results Summary Purpose eClinicalWorks Submission
--- OUTSIDE RECORDS SUMMARY | 2016-08-20 20:25 | XMS REPORT ---
Author Author SASHA POWERS [facility] Address [address] [place] [address] Care Team Providers Care Harbor Engineer Name Role Phone SASHA POWERS Unavailable PROBLEMS Type Condition ICD9-CM Code [id number] Code Onset Dates Condition Status SNOMED Code Problem Essential hypertension I10 Active 19191366 Problem Postablative hypothyroidism E89.0 Active 010980494 Problem Atrial fibrillation, unspecified type I48.91 Active 44655080 Problem Paroxysmal atrial fibrillation I48.0 Active 440170049 ALLERGIES Unknown Allergies SOCIAL HISTORY No smoking Hx information available PLAN OF CARE VITAL SIGNS MEDICATIONS Medication Instructions Dosage Frequency Start Date End Date Duration Status Amlodipine Besylate 5 mg Orally Once a day 1 tablet 24h Apr, 30 day(s) Active RESULTS No Results PROCEDURES No Known procedures IMMUNIZATIONS No Known Immunizations
== END 2016-08-06 16:00 | disposition home or self-care (01) ==
LOC: DELPENDDIS → CATH 08:07 → SURG 12:36 → DELPENDDIS 16:00 → CATH 16:00
PROVIDERS: ATTEND Nurse Practitioner Family
DX: R55 Syncope and collapse (principal); R00.0 Tachycardia, unspecified; R07.89 Other chest pain; E78.5 Hyperlipidemia, unspecified; I48.0 Paroxysmal atrial fibrillation; E11.9 Type 2 diabetes mellitus without complications; Z79.84 Long term (current) use of oral hypoglycemic drugs; Z72.0 Tobacco use
CPT/HCPCS: 36221; 36415; 80053; 80061; 85027; 85610; 85730; 87081; 93458

== ENCOUNTER → 2016-08-27 | Outpatient (CLI) | payer OTHER ==
[~2016-08-27] MED LIST changes: +PRAV20TA PO
== END ==
LOC: RAD 15:24
PROVIDERS: ATTEND Internal Medicine Cardiovascular Disease
DX: I47.2 Ventricular tachycardia (principal); Z72.0 Tobacco use; I48.0 Paroxysmal atrial fibrillation; R55 Syncope and collapse; E11.9 Type 2 diabetes mellitus without complications; R07.89 Other chest pain; I73.9 Peripheral vascular disease, unspecified
CPT/HCPCS: 93923

== ENCOUNTER → 2016-09-12 | Outpatient (CLI) | payer OTHER ==
[2016-09-12 16:47] LABS: THYROID STIMULATING HORMONE 4.08 UIU/ML (0.35-4.94)
== END ==
LOC: LAB 15:57
PROVIDERS: ATTEND Nurse Practitioner Community Health
DX: E05.90 Thyrotoxicosis, unspecified without thyrotoxic crisis or storm (principal)
CPT/HCPCS: 36415; 84439; 84443

== ENCOUNTER → 2016-09-12 | Outpatient (CLI) | payer OTHER | LOC: LAB 15:48 | PROVIDERS: ATTEND Nurse Practitioner Family | DX: A49.02 Methicillin resistant Staphylococcus aureus infection, unspecified site (principal) | CPT/HCPCS: 87081 ==

== ENCOUNTER → 2016-12-17 | Outpatient (CLI) | payer OTHER ==
[2016-12-17 17:04] LABS: THYROID STIMULATING HORMONE 1.5 UIU/ML (0.35-4.94)
== END ==
LOC: LAB 15:58
PROVIDERS: ATTEND Nurse Practitioner Community Health
DX: E05.90 Thyrotoxicosis, unspecified without thyrotoxic crisis or storm (principal)
CPT/HCPCS: 36415; 84439; 84443